=== PATIENT | female | born 1990 | race Two or more races ===

== ENCOUNTER 2020-12-21 17:05 | Observation (INO) | payer BC, OTHER ==
[~2020-12-21] VITALS: Ht 154.9 cm; Wt 84.4 kg
[2020-12-21] MEDS ORDERED: FOLI1TAB6 PO (17:56)
[2020-12-21] MEDS ORDERED: ASPI1TAB20 PO (17:56)
[2020-12-21] MEDS ORDERED: PROG1POW XX (17:56)
[2020-12-21] MEDS ORDERED: MULT1TAB95 PO (17:56)
== END 2020-12-21 19:48 | disposition home or self-care (01) ==
LOC: LDRP 17:05
PROVIDERS: ADMIT Specialist; ATTEND Specialist
DX: O60.03 Preterm labor without delivery, third trimester (principal); O26.873 Cervical shortening, third trimester; Z3A.33 33 weeks gestation of pregnancy
CPT/HCPCS: 59025; 76817; 81002; G0378

== ENCOUNTER 2020-12-27 14:48 | Observation (INO) | payer BC ==
[~2020-12-27] VITALS: Ht 154.9 cm; Wt 84.4 kg
[~2020-12-27 14:48] MED LIST: ASPI-231 PO; FOLI1TAB6 PO; MULT1TAB95 PO; PROG1POW XX
[2020-12-27] MEDS ORDERED: NIFEdipine 10 MG CAP PO ONE (15:30)
[2020-12-27] MEDS ORDERED: NIFEdipine 10 MG CAP ONE (15:36)
[2020-12-27] MEDS ORDERED: NIF10C PO (16:04)
== END 2020-12-27 16:52 | disposition home or self-care (01) ==
LOC: LDRP 14:48
PROVIDERS: ADMIT Specialist; ATTEND Specialist
DX: O60.03 Preterm labor without delivery, third trimester (principal); O62.9 Abnormality of forces of labor, unspecified; Z3A.32 32 weeks gestation of pregnancy
CPT/HCPCS: 59025; 76818; 81002; 94760; G0378

== ENCOUNTER 2020-12-28 12:00 | Observation (INO) | payer BC ==
[~2020-12-28] VITALS: Ht 154.9 cm; Wt 83.9 kg
[~2020-12-28 12:00] MED LIST changes: +NIF10C PO
[2020-12-28] MEDS ORDERED: BETAMETHASONE ACET (6MG/ML) 5ML VIAL IM SCH (13:15)
[2020-12-28] MEDS ORDERED: TERBUTALINE SULFATE 1 MG/ML 1ML VIAL SC SCH (13:30)
[2020-12-29] MEDS ORDERED: BETAMETHASONE ACET (6MG/ML) 5ML VIAL IM SCH (10:00)
== END 2020-12-28 14:25 | disposition home or self-care (01) ==
LOC: LDRP 12:00
PROVIDERS: ADMIT Obstetrics & Gynecology; ATTEND Obstetrics & Gynecology
DX: O62.9 Abnormality of forces of labor, unspecified (principal); Z3A.32 32 weeks gestation of pregnancy
CPT/HCPCS: 59025; 81002; 96372; G0378; J0702; J3105

== ENCOUNTER 2020-12-29 15:10 | Observation (INO) | payer BC ==
[2020-12-29] MEDS ORDERED: BETAMETHASONE ACET (6MG/ML) 5ML VIAL IM ONE (15:30)
== END 2020-12-29 16:45 | disposition home or self-care (01) ==
LOC: LDRP 15:10
PROVIDERS: ADMIT Specialist; ATTEND Specialist
DX: O60.03 Preterm labor without delivery, third trimester (principal); Z3A.32 32 weeks gestation of pregnancy
CPT/HCPCS: 59025; 81002; 94760; 96372; G0378

== ENCOUNTER 2021-01-04 09:02 | Observation (INO) | payer BC ==
[~2021-01-04 09:02] MED LIST changes: -PROG1POW XX
== END 2021-01-04 16:05 | disposition home or self-care (01) ==
LOC: LDRP 15:10
PROVIDERS: ADMIT Specialist; ATTEND Specialist
DX: O60.03 Preterm labor without delivery, third trimester (principal); Z3A.33 33 weeks gestation of pregnancy
CPT/HCPCS: 59025; 81002; 94760; G0378

== ENCOUNTER 2021-01-11 12:13 | Observation (INO) | payer BC ==
[~2021-01-11] VITALS: Ht 154.9 cm; Wt 83.9 kg
[~2021-01-11 12:13] MED LIST changes: -ASPI-231 PO; +ASPI1TAB20 PO
[2021-01-11] MEDS ORDERED: TERBUTALINE SULFATE 1 MG/ML 1ML VIAL SC ONE (15:43)
[2021-01-11] MEDS ORDERED: LACTATED RINGER'S 1,000 ML IV ONE (15:45)
[2021-01-11] MEDS: TERBUTALINE SULFATE 1 MG/ML 1ML VIAL SC SCH ×3 (15:47→19:15)
== END 2021-01-11 21:03 | disposition home or self-care (01) ==
LOC: LDRP 14:40
PROVIDERS: ADMIT Specialist; ATTEND Specialist
DX: O60.03 Preterm labor without delivery, third trimester (principal); Z3A.34 34 weeks gestation of pregnancy
CPT/HCPCS: 59025; 76817; 76818; 81002; 94760; 96360; 96361; 96372; G0378; J3105

== ENCOUNTER 2021-01-12 14:20 | Observation (INO) | payer BC ==
[~2021-01-12] VITALS: Ht 30.5 cm; Wt 0.5 kg
[~2021-01-12 14:20] MED LIST changes: +ASPI-231 PO; -ASPI1TAB20 PO
[2021-01-12] MEDS ORDERED: LACTATED RINGER'S 1,000 ML IV ONE (16:00)
[2021-01-12] MEDS ORDERED: LACTATED RINGER'S 1,000 ML IV SCH (18:45)
[2021-01-12 19:40] LABS: Basophils # (auto) 0 10 ^3/uL (0-0.2); Eosinophils # (auto) 0.1 10 ^3/uL (0-0.8); Hemoglobin 9.9 g/dL (12.2-16.2); Lymphocytes # (auto) 1.6 10 ^3/uL (0.4-5.4); Neutrophils # (auto) 4.8 10 ^3/uL (1.6-8.6); Nucleated Red Blood Cells % 0.1 %; Red Cell Distribution Width 14.6 % (11.8-14.3)
[2021-01-12 19:41] LABS: Basophils % (auto) 0.4 % (0.0-2.0); Eosinophils % (auto) 0.9 % (0.0-7.0); Hematocrit 29.9 % (36.0-46.0); Lymphocytes % (auto) 23.3 % (10.0-50.0); Mean Corpuscular Hemoglobin 26.9 pg (28.0-32.0); Mean Corpuscular Volume 81.5 fL (80.0-100.0); Monocytes # (auto) 0.5 10 ^3/uL (0-1.3); Monocytes % (auto) 6.5 % (0.0-12.0); Neutrophils % (auto) 68.9 % (37.0-80.0); Red Blood Cells 3.68 10^6/uL (4.0-5.20)
[2021-01-12 19:56] LABS: Albumin 2.1 g/dL (3.4-5.0); Calcium 8.6 mg/dL (8.5-10.1); Potassium 3.5 mmol/L (3.5-5.1)
[2021-01-12 19:59] LABS: BUN/Creatinine Ratio 15.6; Bilirubin, Total 0.3 mg/dL (0.2-1.0); INR 0.89 (0.9-1.15); Partial Thromboplastin Time 25.7 sec (23.0-31.2); Total Protein 6.5 g/dL (6.4-8.2)
[2021-01-12 20:48] LABS: Urine Bacteria MOD /hpf (None Seen); Urine Blood 3+ /uL (Negative); Urine Specific Gravity 1.003 (1.001-1.035); Urine WBC 16 /hpf (0 - 5)
[2021-01-12 21:05] LABS: Amphetamine Screen, Urine NEGATIVE (NEGATIVE); Barbiturate Scree,Urine NEGATIVE (NEGATIVE); Benzodiazephine Screen, Urine NEGATIVE (NEGATIVE); Cannabinoid Screen, Urine NEGATIVE (NEGATIVE); Cocaine Screen, Urine NEGATIVE (NEGATIVE); Opiate Scree,Urine NEGATIVE (NEGATIVE); Phencyclidine Screen, Urine NEGATIVE (NEGATIVE)
[2021-01-14 06:06] LABS: RPR Non Reactive (Non Reactive)
== END 2021-01-12 20:00 | disposition short-term general hospital (02) ==
LOC: LDRP 14:20
PROVIDERS: ADMIT Obstetrics & Gynecology; ATTEND Obstetrics & Gynecology
DX: O62.9 Abnormality of forces of labor, unspecified (principal); O60.03 Preterm labor without delivery, third trimester; O76 Abnormality in fetal heart rate and rhythm complicating labor and delivery; Z3A.34 34 weeks gestation of pregnancy; Z79.899 Other long term (current) drug therapy
CPT/HCPCS: 36415; 59025; 76818; 80053; 80307; 81001; 81002; 85025; 85610; 85730; 86592; 86850; 86900; 86901; 87426; 94760; 96360; 96361; G0378; 96365

== ENCOUNTER 2021-01-17 10:15 | Observation (INO) | payer BC | END 2021-01-17 11:21 | disposition home or self-care (01) | LOC: LDRP 10:15 | PROVIDERS: ADMIT Specialist; ATTEND Specialist | DX: O60.03 Preterm labor without delivery, third trimester (principal); Z3A.35 35 weeks gestation of pregnancy | CPT/HCPCS: 59025; 81002; G0378 ==

== ENCOUNTER 2021-01-25 08:28 | Observation (INO) | payer BC ==
[~2021-01-25] VITALS: Ht 152.4 cm; Wt 88.5 kg
[2021-01-25] MEDS ORDERED: LACTATED RINGER'S 1,000 ML IV ONE (10:30)
== END 2021-01-25 12:15 | disposition home or self-care (01) ==
LOC: LDRP 08:28
PROVIDERS: ADMIT Obstetrics & Gynecology; ATTEND Obstetrics & Gynecology
DX: O69.81X0 Labor and delivery complicated by cord around neck, without compression, not applicable or unspecified (principal); O60.03 Preterm labor without delivery, third trimester; Z91.040 Latex allergy status; Z3A.36 36 weeks gestation of pregnancy
CPT/HCPCS: 59025; 76818; 81002; 94760; 96360; G0378

== ENCOUNTER 2021-01-27 10:30 | Observation (INO) | payer BC | END 2021-01-27 12:10 | disposition home or self-care (01) | LOC: LDRP 10:30 | PROVIDERS: ADMIT Obstetrics & Gynecology; ATTEND Obstetrics & Gynecology | DX: O60.03 Preterm labor without delivery, third trimester (principal); O69.81X0 Labor and delivery complicated by cord around neck, without compression, not applicable or unspecified; O41.03X0 Oligohydramnios, third trimester, not applicable or unspecified; Z91.040 Latex allergy status; Z3A.36 36 weeks gestation of pregnancy | CPT/HCPCS: 59025; 76818; 81002; 84112; G0378; Q0114 ==